=== PATIENT | female | born 1970 | race Two or more races ===

== ENCOUNTER 2024-08-29 09:27 | Outpatient (AMB) | payer MEDICAID, SELFPAY ==
[2024-08-29 09:37] VITALS: BP 103/67; PULSE 82; RESP 18; TEMP 35.8; O2SAT 96; BMI 31.2
--- NOTE | 2024-08-29 09:37 | PD.ORTHCLVIS ---
Vital signs 08/29/24 09:37 Height 1.52 m Height Method Stated Weight 72.235 kg Weight Measurement Method Standing Scale BMI 31.2 BP 103/67 Blood Pressure Source Automatic Cuff Blood Pressure Location Right Upper Arm Position Sitting Respiration 18 Pulse 82 Pulse Source Monitor Temp 96.5 F L Temp Source Temporal Artery Scan Pulse Oximetry (%) 96 Oxygen Delivery Method Room Air Med/Allergies Allergies & Medications Allergies No Known Allergies Allergy (Verified 08/29/24 09:39) Medication Reconciliation meloxicam 7.5 mg tablet 7.5 mg PO QDAY #45 tabs 05/03/24 [Rx Confirmed 08/29/24] meloxicam 7.5 mg tablet 7.5 mg PO QDAY #45 tabs 08/29/24 [Rx] Subjective Visit Visit for: follow up visit and knee (BILATERAL) Immunization / Flu Flu Vaccine in the Last 12 Months: Yes Flu Vaccine Exclusion Criteria: Already Received History of Present Illness Chief complaint: 3 MONTHS FOLLOW UP BILATERAL KNEE Date of injury / onset of symptoms: JANUARY Patient is a 53-year-old female who presents today for evaluation of her right knee. The pain is primarily posterior. She was found to have a meniscal tear on MRI. She reports some mechanical symptoms as well. This happened 3 months ago. She did well with the last injection 3 months ago. Personal History Occupation: [employer] AT [employer] Hobbies: NONE Pain Pain level (0-10): 7 Pain duration: ON AND OFF Pain location: inside (medial) Pain quality: sharp, dull and aching Pain timing: night and increases with activity Associated signs & symptoms: weakness Ambulatory data Ambulatory device: none Treatments Number of previous injections: 1 Improvement with previous injections: Yes Improvement with PT: No Improvement with NSAIDS: no Review of Systems Review of Systems: All systems negative unless otherwise noted in HPI. Exam Exam Patient is in no acute distress and is cooperative with the examination today. Breathing is nonlabored. Patient has a normal mood and affect. Bilateral extremities were evaluated and demonstrates sensation intact to light touch. Palpable pedal pulses are present. No significant edema is present. Bilateral hips were examined. The patient has no pain with log roll of the hips. Internal rotation to 30 degrees and external rotation to 30 degrees is painless. Negative FADIR. Left knee was examined today. The left knee is in reasonable alignment. Range of motion from 0-120 degrees. Knee is stable to varus and valgus as well as AP translation with <5mm. Patient has a negative McMurrays. There is no pain with patellofemoral compression and no crepitus noted. The knee is nontender to palpation. The right knee was also examined. The right knee is in [varus] alignment. Range of motion from [0-115] degrees. Knee is stable to varus and valgus as well as AP translation with <5mm. Patient has a positive McMurrays. There is [no] pain with patellofemoral compression and [no] crepitus noted. The knee is tender to palpation medially and posteriorly The patient has moderate arthritis particularly medially. There is joint space narrowing Assessment and Plan Problem List (1) Pain in right knee: Status: Acute Plan: Patient has an MRI that demonstrates a large flap tear. She is 53 years old. She has moderate arthritis in the fairly large meniscal tear. I discussed that I would recommend a cortisone injection. She is not having great mechanical symptoms at this time. I discussed that this arthroscopy meniscectomy would likely involve removing a large part of her meniscus. Recommend knee cortisone injection as patient would like to proceed with conservative treatment at this time. The risks and benefits of the procedure were reviewed with the patient and patient gave verbal consent to continue with the procedure. Procedure: performed by Dr. Brito Using sterile technique the Right knee was thoroughly prepped with alcohol, and approximately 1 cc of Kenalog 40 mg/mL and 4 cc of 1% lidocaine was injected without resistance into the medial tibial femoral joint space. The patient tolerated the procedure. (2) Acute meniscal tear of knee: Status: Acute Office Procedures GNS Level of Care Nursing/Assessment Patient Status: Established Patient Nursing Assessment/Reassesment: Medication Reconciliation, Update PMH in EMR and Vital Signs Coordination of Care: Complex Care and Chronic Disease 1-5, Education Complex Pt/Fam, Consent,records obtained, informed consent, 1 Ins Authorization, Results/Orders obtained and Staff clarify orders Special Needs: Language special needs Established Patient Charge Established Patient Point Assignment: 110 Established Patient Point Charge: EP Level 3 (80-115) Surgical Proc/IM SQ injection Major Surgical Procedure: Yes (RIGHT KNEE INJECTION) Medication Given Medication Given Medication Given: Yes Documented Dose Given: 4 Route: Infiitration Medication Given Medication Given Medication Given: Yes Documented Dose Given: 1 Route: Infiitration Office Meds Xylocaine 10 mg/mL (1 %) injection solution Performing Provider: Alex Brito MD Performing Location: [facility] Administered by: Alex Brito MD on 08/29/24 10:14 Dose Route Admin Location Dispensed Lot Number Expiration Date [facility] [employer] 20 mL Infiltration 20 mL [id number] 05/07/27 99448-321-10 [facility] triamcinolone acetonide 40 mg/mL suspension for injection Performing Provider: Alex Brito MD Performing Location: [facility] Administered by: Alex Brito MD on 08/29/24 10:14 Dose Route Admin Location Dispensed Lot Number Expiration Date [facility] [employer] 40 mg Infiltration 1 mL [id number] 05/07/26 [address]-3 [employer] Past Medical History Past Medical History Have you ever been diagnosed with any of the following: Respiratory Problems Smoking: No Smoking Exposure: No
== END 2024-08-29 10:19 | disposition home or self-care (01) ==
LOC: HODSRG 09:27
PROVIDERS: PCP Nurse Practitioner Family; Referring Provider Nurse Practitioner Family; Supervising Provider Orthopaedic Surgery Adult Reconstructive Orthopaedic Surgery; Visit Provider Orthopaedic Surgery Adult Reconstructive Orthopaedic Surgery
DX: M25.561 Pain in right knee (principal); S83.209D Unspecified tear of unspecified meniscus, current injury, unspecified knee, subsequent encounter; X58.XXXD Exposure to other specified factors, subsequent encounter; M17.9 Osteoarthritis of knee, unspecified
CPT/HCPCS: 20610; 99213; J3301; J3490; G0463

== ENCOUNTER → 2024-08-29 | Outpatient (CLI) | payer MEDICAID, SELFPAY ==
--- NOTE | 2024-08-29 10:33 | XR_ITS ---
Examination: Left knee 4 views TECHNIQUE: Standing AP oblique lateral axial left knee 4 views Exam date 9: August 29, 2024 1142 hours INDICATIONS: Left knee pain beginning 3 months ago. FINDINGS: Moderate osteopenia Mild tricompartment joint narrowing No fracture or dislocation IMPRESSION: Mild tricompartment joint narrowing
== END | disposition home or self-care (01) ==
PROVIDERS: PCP Nurse Practitioner Family; Referring Provider Orthopaedic Surgery Adult Reconstructive Orthopaedic Surgery; Visit Provider Orthopaedic Surgery Adult Reconstructive Orthopaedic Surgery
DX: M25.862 Other specified joint disorders, left knee (principal)
CPT/HCPCS: 73564

== ENCOUNTER 2024-09-17 10:33 | Outpatient (AMB) | payer MEDICAID, SELFPAY ==
[2024-09-17 10:45] VITALS: BP 109/74; PULSE 76; RESP 18; TEMP 36.6; O2SAT 95; BMI 31.4
--- NOTE | 2024-09-17 10:45 | ORTHONT_ITS ---
Vital signs 09/17/24 10:45 Height 1.52 m Height Method Stated Weight 72.66 kg Weight Measurement Method Standing Scale BMI 31.4 BP 109/74 Blood Pressure Source Automatic Cuff Blood Pressure Location Right Upper Arm Position Sitting Respiration 18 Pulse 76 Pulse Source Monitor Temp 97.8 F Temp Source Temporal Artery Scan Pulse Oximetry (%) 95 Oxygen Delivery Method Room Air Med/Allergies Allergies & Medications Allergies No Known Allergies Allergy (Verified 08/29/24 09:39) Subjective Visit Visit for: follow up visit and knee (BILATERAL) Immunization / Flu Flu Vaccine in the Last 12 Months: Yes Flu Vaccine Exclusion Criteria: Already Received History of Present Illness Chief complaint: 3 MONTHS FOLLOW UP BILATERAL KNEE Date of injury / onset of symptoms: JANUARY Patient is a 53-year-old female who presents today for evaluation of her right knee. The pain is primarily posterior. She was found to have a meniscal tear on MRI. She reports some mechanical symptoms as well. This happened 3 months ago. She did well with the last injection 3 months ago. Personal History Occupation: STAY AT HOME Hobbies: NONE Pain Pain level (0-10): 7 Pain duration: ON AND OFF Pain location: inside (medial) Pain quality: sharp, dull and aching Pain timing: night and increases with activity Associated signs & symptoms: weakness Ambulatory data Ambulatory device: none Treatments Number of previous injections: 1 Improvement with previous injections: Yes Improvement with PT: No Improvement with NSAIDS: no Review of Systems Review of Systems: All systems negative unless otherwise noted in HPI. Exam Exam Patient is in no acute distress and is cooperative with the examination today. Breathing is nonlabored. Patient has a normal mood and affect. Bilateral extremities were evaluated and demonstrates sensation intact to light touch. Palpable pedal pulses are present. No significant edema is present. Bilateral hips were examined. The patient has no pain with log roll of the hips. Internal rotation to 30 degrees and external rotation to 30 degrees is painless. Negative FADIR. Left knee was examined today. The left knee is in reasonable alignment. Range of motion from 0-120 degrees. Knee is stable to varus and valgus as well as AP translation with <5mm. Patient has a negative McMurrays. There is no pain with patellofemoral compression and no crepitus noted. The knee is nontender to palpa tion. The right knee was also examined. The right knee is in [varus] alignment. Range of motion from [0-115] degrees. Knee is stable to varus and valgus as well as AP translation with <5mm. Patient has a positive McMurrays. There is [no] pain with patellofemoral compression and [no] crepitus noted. The knee is tender to palpation medially and posteriorly The patient has moderate arthritis particularly medially. There is joint space narrowing Bilaterally Assessment and Plan Problem List (1) Pain in right knee: Status: Acute Plan: Patient has an MRI that demonstrates a large flap tear. She is 53 years old. She has moderate arthritis in the fairly large meniscal tear. I discussed that I would recommend a cortisone injection. She is not having great mechanical symptoms at this time. She is done well with cortisone injections of both knees. She has no pain at all currently. We thus recommend continued conservative treatment (2) Acute meniscal tear of knee: Status: Acute Past Medical History Past Medical History Have you ever been diagnosed with any of the following: Respiratory Problems Smoking: No Smoking Exposure: No
== END 2024-09-17 11:01 | disposition home or self-care (01) ==
LOC: HODSRG 10:33
PROVIDERS: PCP Nurse Practitioner Family; Referring Provider Nurse Practitioner Family; Supervising Provider Orthopaedic Surgery Adult Reconstructive Orthopaedic Surgery; Visit Provider Orthopaedic Surgery Adult Reconstructive Orthopaedic Surgery
DX: M25.561 Pain in right knee (principal); S83.209D Unspecified tear of unspecified meniscus, current injury, unspecified knee, subsequent encounter; X58.XXXD Exposure to other specified factors, subsequent encounter
CPT/HCPCS: 99213; G0463

== ENCOUNTER 2025-01-20 13:23 | Outpatient (AMB) | payer MEDICAID, SELFPAY ==
[2025-01-20 13:55] VITALS: BP 116/73; PULSE 77; RESP 19; TEMP 36.5; O2SAT 97; BMI 31.1
--- NOTE | 2025-01-20 13:55 | ORTHONT_ITS ---
Vital signs 01/20/25 13:55 Height 1.52 m Height Method Stated Weight 72.235 kg Weight Measurement Method Standing Scale BMI 31.1 BP 116/73 Blood Pressure Source Automatic Cuff Blood Pressure Location Right Upper Arm Position Sitting Respiration 19 Pulse 77 Pulse Source Monitor Temp 97.7 F Temp Source Temporal Artery Scan Pulse Oximetry (%) 97 Oxygen Delivery Method Room Air Med/Allergies Allergies & Medications Allergies No Known Allergies Allergy (Verified 01/20/25 13:56) Medication Reconciliation meloxicam 7.5 mg tablet 7.5 mg PO QDAY #45 tabs 08/29/24 [Rx Confirmed 01/20/25] Exam Exam Patient is in no acute distress and is cooperative with the examination today. Breathing is nonlabored. Patient has a normal mood and affect. Bilateral extremities were evaluated and demonstrates sensation intact to light touch. Palpable pedal pulses are present. No significant edema is present. Bilateral hips were examined. The patient has no pain with log roll of the hips. Internal rotation to 30 degrees and external rotation to 30 degrees is painless. Negative FADIR. Left knee was examined today. The left knee is in reasonable alignment. Range of motion from 0-120 degrees. Knee is stable to varus and valgus as well as AP translation with <5mm. Patient has a negative McMurrays. There is no pain with patellofemoral compression and no crepitus noted. The knee is nontender to palpation. The right knee was also examined. The right knee is in [varus] alignment. Range of motion from [0-115] degrees. Knee is stable to varus and valgus as well as AP translation with <5mm. Patient has a positive McMurrays. There is [no] pain with patellofemoral compression and [no] crepitus noted. The knee is tender to palpation medially and posteriorly The patient has moderate arthritis particularly medially. There is joint space narrowing Bilaterally Assessment and Plan Problem List (1) Pain in right knee: Status: Acute Plan: Patient has an MRI that demonstrates a large flap tear. She is 53 years old. She has moderate arthritis in the fairly large meniscal tear. She has done well with conservative treatment and reports that she had no pain for over 6 months. She reports that the pain is starting to come back again. She would like bilateral knee cortisone injections today. We also get new x-rays Of her hips as she has been having pain that recently Recommend knee cortisone injections as patient would like to proceed with conservative treatment at this time. The risks and benefits of the procedure were reviewed with the patient and patient gave verbal consent to continue with the procedure. Procedure: performed by Dr. Brito Using sterile technique the Bilateral knees were thoroughly prepped with alcohol, and approximately 1 cc of Kenalog 40 mg/mL and 4 cc of 1% lidocaine was injected into each knee without resistance into the medial tibial femoral joint space. The patient tolerated the procedure. (2) Acute meniscal tear of knee: Status: Acute Office Procedures GNS Level of Care Nursing/Assessment Patient Status: Established Patient Nursing Assessment/Reassesment: Medication Reconciliation, Update PMH in EMR and Vital Signs Coordination of Care: Complex Care/Chronic Disease 5 or more, Education Complex Pt/Fam, Consent,records obtained, informed consent, 1 Ins Authorization and Staff clarify orders Established Patient Charge Established Patient Point Assignment: 115 Established Patient Point Charge: EP Level 3 (80-115) Surgical Proc/IM SQ injection Major Surgical Procedure: Yes (BILATERAL KNEE INJECTION) Medication Given Medication Given Medication Given: Yes Documented Dose Given: 8 Route: Infiitration Medication Given Medication Given Medication Given: Yes Documented Dose Given: 2 Route: Infiitration Office Meds Xylocaine 10 mg/mL (1 %) injection solution Performing Provider: Alex Brito MD Performing Location: [facility] Administered by: Alex Brito MD on 01/20/25 14:27 Dose Route Admin Location Dispensed Lot Number Expiration Date [facility] [place] 2[place] [employer] Inspector 40 mL Infiltration 40 mL [id number] 04/07/28 82899-182-48 [facility] triamcinolone acetonide 40 mg/mL suspension for injection Performing Provider: Alex Brito MD Performing Location: [facility] Administered by: Alex Brito MD on 01/20/25 14:27 Dose Route Admin Location Dispensed Lot Number Expiration Date [facility] [place]NOTE 2[place] Sew[employer] Inspector 80 mg intra-articular 2 mL [id number] 08/07/26 6569-8938-40 [facility] [place] Intake Visit Data Collection New Patient or Established: Established Patient (seen at [facility] within 3 years) Reason for Visit:: FOLLOW UP KNEE PAIN, REQUESTING KNEE INJECTION Field Nurse Required: No Do You Feel Safe at Home: Yes Questionairres Past Medical History Past Medical History Have you ever been diagnosed with any of the following: Cardiology Problems Hypertension: No Respiratory Problems Smoking: No Smoking Exposure: No Subjective Visit Visit for: follow up visit, knee and injections Immunization / Flu Flu Vaccine in the Last 12 Months: Yes Flu Vaccine Exclusion Criteria: Already Received History of Present Illness Chief complaint: FOLLOW UP KNEE PAIN, REQUESTING KNEE INJECTION Patient is a 54-year-old female who we have been treating nonoperatively. She has been doing well. She had over 6 months of relief with the last injections. She would like new new injections today. Personal History Red flag PMH: none BMI Counceling provided: Yes Pain Pain level (0-10): 9 Pain duration: INTERMITTENT Pain quality: sharp, dull, aching and burning Associated signs & symptoms: weakness and stiffness Ambulatory data Ambulatory device: none Review of Systems Review of Systems: All systems negative unless otherwise noted in HPI.
--- NOTE | 2025-01-20 14:12 | XR_ITS ---
Examination: Bilateral hips, AP pelvis, 5 views Technique: AP, lateral views both hips, AP pelvis, 5 views Exam date and time: January 20, 2025 1425 hours INDICATIONS: Bilateral knee pain beginning 4 months ago. FINDINGS: Mild narrowing hip joints No right or left hip fracture or dislocation No avascular necrosis Bones of the pelvis intact IMPRESSION: Mild bilateral narrowing hip joints
== END 2025-01-20 14:21 | disposition home or self-care (01) ==
PROVIDERS: PCP Nurse Practitioner Family; Referring Provider Nurse Practitioner Family; Supervising Provider Orthopaedic Surgery Adult Reconstructive Orthopaedic Surgery; Visit Provider Orthopaedic Surgery Adult Reconstructive Orthopaedic Surgery
DX: M25.561 Pain in right knee (principal); S83.209D Unspecified tear of unspecified meniscus, current injury, unspecified knee, subsequent encounter; X58.XXXD Exposure to other specified factors, subsequent encounter; M17.9 Osteoarthritis of knee, unspecified
CPT/HCPCS: 20610; 73522; 99213; J3301; J3490; G0463

== ENCOUNTER 2025-04-22 09:47 | Outpatient (AMB) | payer MEDICAID, SELFPAY ==
--- NOTE | 2025-04-22 10:36 | ORTHONT_ITS ---
Vital signs 04/22/25 10:40 Height 1.52 m Height Method Measured Weight 64.637 kg Weight Measurement Method Standing Scale BMI 27.9 BP 114/74 Blood Pressure Source Automatic Cuff Blood Pressure Location Right Upper Arm Position Sitting Respiration 19 Pulse 78 Pulse Source Monitor Temp 97.8 F Temp Source Temporal Artery Scan Pulse Oximetry (%) 96 Oxygen Delivery Method Room Air Med/Allergies Allergies & Medications Allergies No Known Allergies Allergy (Verified 04/22/25 10:41) Medication Reconciliation meloxicam 7.5 mg tablet 7.5 mg PO QDAY #45 tabs 08/29/24 [Rx Confirmed 04/22/25] Exam Exam Patient is in no acute distress and is cooperative with the examination today. Breathing is nonlabored. Patient has a normal mood and affect. Bilateral extremities were evaluated and demonstrates sensation intact to light touch. Palpable pedal pulses are present. No significant edema is present. Bilateral hips were examined. The patient has no pain with log roll of the hips. Internal rotation to 30 degrees and external rotation to 30 degrees is painless. Negative FADIR. Left knee was examined today. The left knee is in reasonable alignment. Range of motion from 0-120 degrees. Knee is stable to varus and valgus as well as AP translation with <5mm. Patient has a negative McMurrays. There is no pain with patellofemoral compression and no crepitus noted. The knee is nontender to palpation. The right knee was also examined. The right knee is in [varus] alignment. Range of motion from [0-115] degrees. Knee is stable to varus and valgus as well as AP translation with <5mm. Patient has a positive McMurrays. There is [no] pain with patellofemoral compression and [no] crepitus noted. The knee is tender to palpation medially and posteriorly The patient has moderate arthritis particularly medially. There is joint space narrowing Bilaterally Assessment and Plan Problem List (1) Pain in right knee: Status: Acute Plan: Patient has an MRI that demonstrates a large flap tear. She is 53 years old. She has moderate arthritis in the fairly large meniscal tear. She has done well with conservative treatment and reports that she had no pain for over 6 months. She reports that the pain is starting to come back again. She would like bilateral knee cortisone injections today. We will also order a right hip cortisone injection she has hip dysplasia with a labral tear Recommend knee cortisone injections as patient would like to proceed with conservative treatment at this time. The risks and benefits of the procedure were reviewed with the patient and patient gave verbal consent to continue with the procedure. Procedure: performed by Dr. Brito Using sterile technique the Bilateral knees were thoroughly prepped with alcohol, and approximately 1 cc of Kenalog 40 mg/mL and 4 cc of 1% lidocaine was injected into each knee without resistance into the medial tibial femoral joint space. The patient tolerated the procedure. (2) Acute meniscal tear of knee: Status: Acute (3) Arthritis of right hip: Status: Acute Office Procedures GNS Level of Care Nursing/Assessment Patient Status: Established Patient Nursing Assessment/Reassesment: Medication Reconciliation, Update PMH in EMR and Vital Signs Coordination of Care: Complex Care and Chronic Disease 1-5, Education Complex Pt/Fam, Consent,records obtained, informed consent, Results/Orders obtained and Staff clarify orders Established Patient Charge Established Patient Point Assignment: 95 Established Patient Point Charge: EP Level 3 (80-115) Surgical Proc/IM SQ injection Major Surgical Procedure: Yes (BILATERAL KNEE INJECTIONS ) Medication Given Medication Given Medication Given: Yes Documented Dose Given: 8 Route: Infiitration Medication Given Medication Given Medication Given: Yes Documented Dose Given: 2 Route: Infiitration Office Meds Xylocaine 10 mg/mL (1 %) injection solution Performing Provider: Alex Brito MD Performing Location: [facility] Administered by: Alex Brito MD on 04/22/25 11:53 Dose Route Admin Location Dispensed Lot Number Expiration Date [facility] Form Setter[employer]Driver 40 mL Infiltration 40 mL [id number] [employer] triamcinolone acetonide 40 mg/mL suspension for injection Performing Provider: Alex Brito MD Performing Location: [facility] Administered by: Alex Brito MD on 04/22/25 11:53 Dose Route Admin Location Dispensed Lot Number Expiration Date [facility] Form Setter/Driver 80 mg intra-articular 2 mL [id number] [employer]AL[employer]AP[employer] MA Intake Visit Data Collection New Patient or Established: Established Patient (seen at [facility] within 3 years) Reason for Visit:: 3 MONTHS BILATERAL KNEE INJECTIONS Seen by Clinical Staff ONLY (RN/MA): No Verbal consent obtained for Telemed visit?: No Parking Lot Chauffeur Required: No PCP or OBGYN visit in last 3 months: Yes Hx Now: No Do You Feel Safe at Home: Yes Authorities Contacted: N/A Questionairres Past Medical History Past Medical History Have you ever been diagnosed with any of the following: Cardiology Problems Hypertension: No Respiratory Problems Smoking: No Smoking Exposure: No Subjective Visit Visit for: follow up visit, knee and injections Immunization / Flu Flu Vaccine in the Last 12 Months: Yes Flu Vaccine Exclusion Criteria: Already Received History of Present Illness Chief complaint: FOLLOW UP KNEE PAIN, REQUESTING KNEE INJECTION Patient is a 54-year-old female who we have been treating nonoperatively. She has been doing well. She had over 6 months of relief with the last injections. She would like new new injections today of both knees. She reports that she has been having pain in her groin. X-rays demonstrate mild arthritis as well as hip dysplasia. Personal History Red flag PMH: none BMI Counceling provided: Yes Pain Pain level (0-10): 9 Pain duration: INTERMITTENT Pain quality: sharp, dull, aching and burning Associated signs & symptoms: weakness and stiffness Ambulatory data Ambulatory device: none Treatments Improvement with previous injections: No Improvement with PT: No Improvement with NSAIDS: no Review of Systems Review of Systems: All systems negative unless otherwise noted in HPI.
[2025-04-22 10:40] VITALS: BP 114/74; PULSE 78; RESP 19; TEMP 36.6; O2SAT 96; BMI 27.9
== END 2025-04-22 10:49 | disposition home or self-care (01) ==
PROVIDERS: PCP Nurse Practitioner Family; Referring Provider Nurse Practitioner Family; Supervising Provider Orthopaedic Surgery Adult Reconstructive Orthopaedic Surgery; Visit Provider Orthopaedic Surgery Adult Reconstructive Orthopaedic Surgery
DX: M25.561 Pain in right knee (principal); S83.209D Unspecified tear of unspecified meniscus, current injury, unspecified knee, subsequent encounter; X58.XXXD Exposure to other specified factors, subsequent encounter; Q65.89 Other specified congenital deformities of hip; M16.11 Unilateral primary osteoarthritis, right hip
CPT/HCPCS: 20610; 99213; J3301; J3490; G0463

== ENCOUNTER 2025-08-28 10:06 | Outpatient (AMB) | payer MEDICAID, SELFPAY ==
[2025-08-28 10:13] VITALS: BP 116/75; PULSE 78; RESP 18; TEMP 36.4; O2SAT 95; BMI 27.9
--- NOTE | 2025-08-28 10:13 | ORTHONT_ITS ---
Vital signs 08/28/25 10:13 Height 1.52 m Height Method Measured Weight 64.552 kg Weight Measurement Method Standing Scale BMI 27.9 BP 116/75 Blood Pressure Source Automatic Cuff Blood Pressure Location Right Upper Arm Position Sitting Respiration 18 Pulse 78 Pulse Source Monitor Temp 97.5 F Temp Source Temporal Artery Scan Pulse Oximetry (%) 95 Oxygen Delivery Method Room Air Med/Allergies Allergies & Medications Allergies No Known Allergies Allergy (Verified 08/28/25 10:14) Medication Reconciliation meloxicam 7.5 mg tablet 7.5 mg PO QDAY #45 tabs 08/29/24 [Rx Confirmed 08/28/25] Exam Exam Patient is in no acute distress and is cooperative with the examination today. Breathing is nonlabored. Patient has a normal mood and affect. Bilateral extremities were evaluated and demonstrates sensation intact to light touch. Palpable pedal pulses are present. No significant edema is present. Bilateral hips were examined. The patient has no pain with log roll of the hips. Internal rotation to 30 degrees and external rotation to 30 degrees is painless. Negative FADIR. Left knee was examined today. The left knee is in reasonable alignment. Range of motion from 0-120 degrees. Knee is stable to varus and valgus as well as AP translation with <5mm. Patient has a negative McMurrays. There is no pain with patellofemoral compression and no crepitus noted. The knee is nontender to palpation. The right knee was also examined. The right knee is in [varus] alignment. Range of motion from [0-115] degrees. Knee is stable to varus and valgus as well as AP translation with <5mm. Patient has a positive McMurrays. There is [no] pain with patellofemoral compression and [no] crepitus noted. The knee is tender to palpation medially and posteriorly The patient has moderate arthritis particularly medially. There is joint space narrowing Bilaterally Assessment and Plan Problem List (1) Pain in right knee: Status: Acute Plan: Patient is a 54-year-old female with bilateral knee arthritis worse on the right. She is possibly a candidate for Uni as she has isolated medial compartment pain. She had moderate arthritis with the last x-rays a year and a half ago. We will order new ones. She would like bilateral knee injections today as well. Recommend knee cortisone injection as patient would like to proceed with conservative treatment at this time. The risks and benefits of the procedure were reviewed with the patient and patient gave verbal consent to continue with the procedure. Procedure: performed by Dr. Brito Using sterile technique the Right knee was thoroughly prepped with alcohol, and approximately 1 cc of Depo-Medrol 80mg/mL and 4 cc of 0.2% ropivacaine was injected without resistance into the medial tibial femoral joint space. The patient tolerated the procedure. Recommend knee cortisone injection as patient would like to proceed with conservative treatment at this time. The risks and benefits of the procedure were reviewed with the patient and patient gave verbal consent to continue with the procedure. Procedure: performed by Dr. Brito Using sterile technique the leftknee was thoroughly prepped with alcohol, and approximately 1 cc of Depo- Medrol 80mg/mL and 4 cc of 0.2% ropivacaine was injected without resistance into the medial tibial femoral joint space. The patient tolerated the procedure. (2) Acute meniscal tear of knee: Status: Acute (3) Arthritis of right hip: Status: Acute Office Procedures GNS Level of Care Nursing/Assessment Patient Status: Established Patient Nursing Assessment/Reassesment: Medication Reconciliation, Update PMH in EMR and Vital Signs Coordination of Care: Complex Care and Chronic Disease 1-5, Education Complex Pt/Fam, Consent,records obtained, informed consent, Results/Orders obtained and Staff clarify orders Special Needs: Language special needs Established Patient Charge Established Patient Point Assignment: 95 Established Patient Point Charge: EP Level 3 (80-115) Surgical Proc/IM SQ injection Minor Surgical Procedure: Yes (BILATERAL KNEE INJECTION) Medication Given Medication Given Medication Given: Yes Documented Dose Given: 2 Route: Infiitration Medication Given Medication Given Medication Given: Yes Documented Dose Given: 8 Route: Infiitration Office Meds methylprednisolone acetate 80 mg/mL suspension for injection Performing Provider: Alex Brito MD Performing Location: [facility] Administered by: Alex Brito MD on 08/28/25 11:54 Dose Route Admin Location Dispensed Lot Number Expiration Date Pack age [facility] Air Traffic Coordinator 160 mg intra-articular KNEE 2 mL [id number] 05/07/27 [address]-1 [id number] [employer] ropivacaine (PF) 2 mg/mL (0.2 %) injection solution Performing Provider: Alex Brito MD Performing Location: [facility] Administered by: Alex Brito MD on 08/28/25 11:54 Dose Route Admin Location Dispensed Lot Number Expiration Date Pack age [facility] Air Traffic Coordinator 40 mL Infiltration KNEE 40 mL [id number] 11/07/27 85757-265-61 [id number] [facility] Intake Visit Data Collection New Patient or Established: Established Patient (seen at [facility] within 3 years) Reason for Visit:: 3 MONTHS BILATERAL KNEE INJECTIONS Seen by Clinical Staff ONLY (RN/MA): No Verbal consent obtained for Telemed visit?: No Electronic Components As[employer]er Required: Yes PCP or OBGYN visit in last 3 months: Yes Hx Now: No Do You Feel Safe at Home: Yes Authorities Contacted: N/A Questionairres Past Medical History Past Medical History Have you ever been diagnosed with any of the following: Cardiology Problems Hypertension: No Respiratory Problems Smoking: No Smoking Exposure: No Subjective Visit Visit for: follow up visit, knee and injections Immunization / Flu Flu Vaccine in the Last 12 Months: Yes Flu Vaccine Exclusion Criteria: Already Received History of Present Illness Chief complaint: FOLLOW UP KNEE PAIN, REQUESTING KNEE INJECTION Patient is a 54-year-old female who we have been treating nonoperatively. She has been doing well. She had over 6 months of relief with the last injections. She would like new new injections today of both knees. Her last x-rays were over a year and a half old and she would like them today. She reports the pain continues to be in particular on the right side Personal History Red flag PMH: none BMI Counceling provided: Yes Pain Pain level (0-10): 9 Pain duration: INTERMITTENT Pain quality: sharp, dull, aching and burning Associated signs & symptoms: weakness and stiffness Ambulatory data Ambulatory device: none Treatments Improvement with previous injections: No Improvement with PT: No Improvement with NSAIDS: no Review of Systems Review of Systems: All systems negative unless otherwise noted in HPI.
--- NOTE | 2025-08-28 10:24 | XR_ITS ---
EXAMINATION: Bilateral knees 2 views Right lateral knee left lateral knee 2 views Bilateral Axuni single view TECHNIQUE: Bilateral AP knees standing single view, bilateral PA knees standing single view flexion 2 views Standing right lateral knee left lateral knee 2 views Bilateral Axuni single view total 5 views Date and time: September 01, 2025, 1050 hours, comparison August 29, 2024 INDICATIONS: Bilateral knee pain beginning 2 years ago. FINDINGS: Moderate narrowing medial lateral joint spaces bilaterally Mild osteoarthritis patellofemoral joints No fractures or patellar dislocations IMPRESSION: Moderate narrowing medial lateral joint spaces bilaterally
== END 2025-08-28 10:37 | disposition home or self-care (01) ==
LOC: HODSRG 10:06
PROVIDERS: PCP Nurse Practitioner Family; Referring Provider Nurse Practitioner Family; Supervising Provider Orthopaedic Surgery Adult Reconstructive Orthopaedic Surgery; Visit Provider Orthopaedic Surgery Adult Reconstructive Orthopaedic Surgery
DX: M25.561 Pain in right knee (principal); M17.0 Bilateral primary osteoarthritis of knee; S83.209A Unspecified tear of unspecified meniscus, current injury, unspecified knee, initial encounter; X58.XXXA Exposure to other specified factors, initial encounter; M16.11 Unilateral primary osteoarthritis, right hip
CPT/HCPCS: 20610; 73564; 99213; J1010; J2795; G0463